=== PATIENT | female | born 1970 | race African-American/Black ===

== ENCOUNTER 2025-02-23 14:27 | Emergency (ER) | payer SELFPAY ==
[~2025-02-23] VITALS: Ht 170.2 cm; Wt 62.0 kg
[2025-02-23 14:31] VITALS: BP 132/82; PULSE 102; RESP 18; TEMP 36.6; O2SAT 98
== END 2025-02-23 16:48 | disposition left against medical advice (07) ==
LOC: EDBD → ER 15:16
DX: M54.50 Low back pain, unspecified (principal); Z53.21 Procedure and treatment not carried out due to patient leaving prior to being seen by health care provider

== ENCOUNTER 2025-02-23 21:32 | Emergency (ER) | payer MEDICAID ==
[~2025-02-23] VITALS: Ht 165.1 cm; Wt 80.0 kg
[2025-02-23 21:40] VITALS: O2SAT 99
[2025-02-23] MEDS: LORAZEPAM 2MG/ML UD SYRINGE IM SCH (23:03)
[2025-02-23] MEDS: DIPHENHYDRAMINE 50MG/ML VIAL IM ONE (23:04)
[2025-02-23] MEDS: HALOPERIDOL LACTATE 5MG/ML VIAL IM ONE (23:04)
[2025-02-23 23:23] LABS: BASOPHILS % 0.5 % (0.0-2.0); EOSINOPHILS % 3.1 % (0.0-5.0); HEMATOCRIT. 32.4 % (36.0-48.0); HEMOGLOBIN. 11.0 g/dL (12.0-16.0); LYMPHOCYTES % 21.1 % (20.0-50.0); MEAN PLATELET VOLUME 7.0 fl (7.4-10.4); MONOCYTES % 7.6 % (2.0-8.0); NEUTROPHILS % 67.7 % (40.0-76.0); PLATELET 298 x1000/uL (130-400); RED BLOOD CELL COUNT 3.48 mill/uL (4.2-5.4); RED CELL DISTRIBUTION WIDTH 13.4 % (11.6-14.6)
[2025-02-23 23:35] LABS: CREATININE 0.8 mg/dL (0.6-1.0); UREA NITROGEN BLOOD 24 mg/dL (9-23)
[2025-02-23 23:37] LABS: ASPARTATE AMINOTRANSFERASE 61 IU/L (<34); BILIRUBIN DIRECT 0.2 mg/dL (<=3.0)
[2025-02-23 23:38] LABS: BILIRUBIN TOTAL 0.7 mg/dL (0.1-1.0); PROTEIN TOTAL 6.8 g/dL (6.0-8.3)
[2025-02-24 00:01] LABS: HCG SCREEN NEGATIVE
[2025-02-24 00:28] LABS: CLARITY URINE CLEAR (CLEAR); COLOR URINE YELLOW (YELLOW); GLUCOSE URINE NEGATIVE (NEGATIVE); KETONES URINE TRACE (NEGATIVE); LEUKOCYTE ESTERASE URINE TRACE (NEGATIVE); NITRITE URINE NEGATIVE (NEGATIVE); OCCULT BLOOD URINE 1+ (NEGATIVE); PH URINE 6.0 (4.5-8.0); PROTEIN URINE TRACE (NEGATIVE); SPECIFIC GRAVITY URINE 1.028 (1.005-1.030); UROBILINOGEN URINE 0.2 E.U./dL (0.2-1.0)
[2025-02-24 00:57] LABS: *AMPHETAMINES SCREEN URINE PRESUMPTIVE POSITIVE (NEGATIVE); *BENZODIAZEPINES SCREEN URINE NEGATIVE (NEGATIVE)
[2025-02-24 00:58] LABS: *BARBITURATES SCREEN URINE NEGATIVE (NEGATIVE); *COCAINE SCREEN URINE NEGATIVE (NEGATIVE); CANNABINOID URINE SCREEN NEGATIVE (NEGATIVE); ECSTASY MDMA SCREEN URINE CONF.TEST INDICATED (NEGATIVE); METHADONE URINE SCREEN NEGATIVE (NEGATIVE); OPIATES URINE SCREEN NEGATIVE (NEGATIVE); PHENCYCLIDINE URINE SCREEN NEGATIVE (NEGATIVE)
[2025-02-24] MEDS: POTASSIUM CHLORIDE 20MEQ/PACKET PO NR (01:14)
[2025-02-24 01:16] LABS: SQUAMOUS EPITHELIAL CELL URINE FEW /lpf (RARE/1+)
[2025-02-24 01:17] LABS: BACTERIA URINE NONE SEEN; RBC URINE 0-2 /hpf (0-2); WBC URINE 0-2 /hpf (0-2)
[2025-02-24] MEDS: RISPERIDONE 0.5MG TABLET PO SCH (11:30)
[2025-02-24] MEDS: HYDROXYZINE 25MG TABLET PO PRN (11:59)
[2025-02-25] MEDS: RISPERIDONE 0.5MG TABLET PO SCH (09:00)
[2025-02-25 11:02] VITALS: BP 106/58; PULSE 88; RESP 16; TEMP 36.8; O2SAT 99
== END 2025-02-25 11:35 ==
LOC: EDBD 21:32 → ER 21:32
DX: R45.851 Suicidal ideations (principal); M25.571 Pain in right ankle and joints of right foot; F29 Unspecified psychosis not due to a substance or known physiological condition; I10 Essential (primary) hypertension; Z79.899 Other long term (current) drug therapy; Z20.822 Contact with and (suspected) exposure to COVID-19
CPT/HCPCS: 80076; 80305; 80048; 81003; 80307; 80329; 80320; 84703; 85025; 36415; 73600; 73620; 93005; 96372; 99285; 87426; J1200; J1630; J2060; G0480